=== PATIENT | male | born 1960 | race Caucasian/White ===

== ENCOUNTER 2017-12-18 09:25 | Emergency (ER) | payer MEDICARE, OTHER ==
[~2017-12-18] VITALS: Ht 180.3 cm; Wt 95.0 kg
[2017-12-18] MEDS ORDERED: LIDOcaine 1% 30ml preserv. free vial IJ STA (11:11)
[2017-12-18] MEDS ORDERED: CEPH-572 PO (11:52)
[2017-12-18] MEDS ORDERED: IBUP-1984 PO (11:52)
[2017-12-18 12:13] VITALS: BP 138/84
== END 2017-12-18 12:17 | disposition home or self-care (01) ==
LOC: ER 09:26
DX: S61.011A Laceration without foreign body of right thumb without damage to nail, initial encounter (principal); W25.XXXA Contact with sharp glass, initial encounter; Y93.89 Activity, other specified; Y92.89 Other specified places as the place of occurrence of the external cause; Y99.8 Other external cause status
CPT/HCPCS: 12001; 99283; A6255; A6449; J3490

== ENCOUNTER 2019-02-04 09:23 | Emergency (ER) | payer MEDICARE ==
[~2019-02-04] VITALS: Ht 180.3 cm; Wt 86.4 kg
[2019-02-04 09:29] VITALS: BP 112/72
[2019-02-04 10:01] LABS: BASOPHILS # (AUTO) 0.1 X10'3 (0-0.2); BASOPHILS % (AUTO) 0.9 % (0-1); EOSINOPHILS # (AUTO) 0.1 X10'3 (0-0.9); EOSINOPHILS % (AUTO) 1.5 % (0-6); HEMATOCRIT 45.9 % (42.0-52.0); HEMOGLOBIN 15.4 g/dl (14.0-17.9); LYMPHOCYTES # (AUTO) 1.2 X10'3 (1.1-4.8); LYMPHOCYTES % (AUTO) 19.6 % (21-51); MEAN CORPUSCULAR HEMOGLOBIN 31.7 PG (27.0-31.0); MEAN CORPUSCULAR HGB CONC 33.5 g/dL (33.0-36.5); MEAN CORPUSCULAR VOLUME 94.7 FL (78-98); MEAN PLATELET VOLUME 7.1 FL (7.4-10.4); MONOCYTES # (AUTO) 0.5 X10'3 (0-0.9); MONOCYTES % (AUTO) 8.4 % (2-12); NEUTROPHILS # (AUTO) 4.1 X10'3 (1.8-7.7); NEUTROPHILS % (AUTO) 69.6 % (42-75); PLATELET COUNT 236 X10'3 (140-440); RED BLOOD COUNT 4.85 X10'6 (4.70-6.10); RED CELL DISTRIBUTION WIDTH 14.8 % (11.5-14.5)
[2019-02-04 10:19] LABS: ALANINE AMINOTRANSFERASE 20 U/L (12-78); ALBUMIN 3.7 G/DL (3.4-5.0); ALBUMIN/GLOBULIN RATIO 1.1 (1.1-1.5); ALKALINE PHOSPHATASE 95 IU/L (46-116); ANION GAP 13 (8-16); ASPARTATE AMINO TRANSFERASE 19 U/L (10-37); BILIRUBIN,TOTAL 0.6 MG/DL (0.1-1.0); BLOOD UREA NITROGEN 17 MG/DL (7-18); CALCIUM 9.4 MG/DL (8.5-10.1); CHLORIDE 104 MMOL/L (99-107); CREATININE 1.31 MG/DL (0.60-1.10); GLUCOSE 105 MG/DL (70-104); POTASSIUM 4.3 MMOL/L (3.5-5.1); SODIUM 141 MMOL/L (135-145); TOTAL CARBON DIOXIDE 23.8 MMOL/L (24-32); TOTAL PROTEIN 7.1 G/DL (6.4-8.2); eGFR 56 ML/MIN
[2019-02-04 10:24] LABS: ETHANOL < 0.010 GM/DL (0.0-0.010)
[2019-02-04 10:54] LABS: CLARITY,URINE CLEAR (Clear); COLOR,URINE YELLOW (Yellow); GLUCOSE, URINE NEGATIVE (Neg); KETONES,URINE TRACE mg/dl (Neg); LEUKOCYTE ESTERASE ,URINE NEGATIVE (Neg); OCCULT BLOOD,URINE NEGATIVE (Neg); PH,URINE 5.5 (4.8-8.0); PROTEIN,URINE TRACE mg/dl (Neg)
[2019-02-04 11:02] LABS: NITRITES, URINE NEGATIVE (Neg); UA COLLECTION TYPE CLN CATCH MIDSTREAM
[2019-02-04 11:03] LABS: BACTERIA,URINE FEW /HPF (Neg); MUCUS STRANDS FEW /LPF (Neg); RBC,URINE 0-2 /HPF (0-2); SQUAMOUS EPITHELIAL CELL,UR FEW /LPF (FEW); WBC,URINE 0-4 /HPF (0-4)
[2019-02-04 11:05] LABS: URINE AMPHETAMINE SCREEN POSITIVE (Neg); URINE BARBITUATE SCREEN NEGATIVE (Neg); URINE BENZODIAZEPINES SCREEN NEGATIVE (Neg); URINE CANNABINOID SCREEN NEGATIVE (Neg); URINE COCAINE SCREEN NEGATIVE (Neg); URINE METHADONE SCREEN NEGATIVE (Neg); URINE OPIATE SCREEN NEGATIVE (Neg); URINE PHENCYCLIDINE SCREEN NEGATIVE (Neg)
--- NOTE | 2019-02-04 11:30 | NUR ---
Charge nurse called [place] [facility] to request the PA consult patient.
--- NOTE | 2019-02-04 13:24 | NUR ---
Pt. eating lunch. Pt. was wanting to leave earlier. RN discussed plan of care with pt. and his mother and reminded them pt. is on a hold and cannot leave.
== END 2019-02-04 14:36 | disposition home or self-care (01) ==
LOC: ER 09:24
DX: F29 Unspecified psychosis not due to a substance or known physiological condition (principal); F15.90 Other stimulant use, unspecified, uncomplicated; R45.851 Suicidal ideations; F17.200 Nicotine dependence, unspecified, uncomplicated
CPT/HCPCS: 36415; 80053; 80305; 80320; 81001; 84443; 85025; 99284

== ENCOUNTER 2021-01-21 11:19 | Emergency (ER) | payer MEDICARE, OTHER ==
[~2021-01-21] VITALS: Ht 180.3 cm; Wt 90.0 kg
[2021-01-21] MEDS ORDERED: metoprolol tartrate 50mg tablet PO ONE (11:25)
[2021-01-21] MEDS ORDERED: amLODIPine 5mg tablet PO ONE (11:25)
[2021-01-21 11:39] LABS: BASOPHILS # (AUTO) 0.1 X10'3 (0-0.2); BASOPHILS % (AUTO) 1.8 % (0-1); EOSINOPHILS # (AUTO) 0.1 X10'3 (0-0.9); EOSINOPHILS % (AUTO) 0.9 % (0-6); HEMATOCRIT 52.9 % (42.0-52.0); HEMOGLOBIN 17.4 g/dl (14.0-17.9); LYMPHOCYTES # (AUTO) 0.7 X10'3 (1.1-4.8); LYMPHOCYTES % (AUTO) 11.8 % (21-51); MEAN CORPUSCULAR HEMOGLOBIN 29.4 PG (27.0-31.0); MEAN CORPUSCULAR HGB CONC 32.9 g/dL (33.0-36.5); MEAN CORPUSCULAR VOLUME 89.4 FL (78-98); MEAN PLATELET VOLUME 8.1 FL (7.4-10.4); MONOCYTES # (AUTO) 0.5 X10'3 (0-0.9); MONOCYTES % (AUTO) 8.7 % (2-12); NEUTROPHILS # (AUTO) 4.3 X10'3 (1.8-7.7); NEUTROPHILS % (AUTO) 76.8 % (42-75); PLATELET COUNT 178 X10'3 (140-440); RED BLOOD COUNT 5.91 X10'6 (4.70-6.10); RED CELL DISTRIBUTION WIDTH 18.1 % (11.5-14.5); WHITE BLOOD COUNT 5.6 X10'3 (4.5-11.0)
[2021-01-21 12:01] VITALS: BP_DIAS 97
[2021-01-21 12:05] LABS: ALANINE AMINOTRANSFERASE 24 U/L (12-78); ALBUMIN 3.9 G/DL (3.4-5.0); ALKALINE PHOSPHATASE 148 IU/L (46-116); ANION GAP 22 (8-16); ASPARTATE AMINO TRANSFERASE 27 U/L (10-37); BILIRUBIN,TOTAL 0.5 MG/DL (0.1-1.0); BLOOD UREA NITROGEN 19 MG/DL (7-18); BUN/CREATININE RATIO 13.8 (5.4-32.0); CALCIUM 9.1 MG/DL (8.5-10.1); CHLORIDE 97 MMOL/L (99-107); CREATININE 1.38 MG/DL (0.60-1.10); GLUCOSE 115 MG/DL (70-104); POTASSIUM 4.5 MMOL/L (3.5-5.1); SODIUM 145 MMOL/L (135-145); TOTAL CARBON DIOXIDE 26.1 MMOL/L (24-32); TOTAL PROTEIN 7.8 G/DL (6.4-8.2); eGFR 52 ML/MIN
[2021-01-21 12:12] VITALS: BP_SYST 178
[2021-01-21] MEDS ORDERED: proCHLORperazine 10 MG/2 ml inj IV ONE (12:15)
[2021-01-21] MEDS ORDERED: normal saline 1000ml 1,000 ML IV ONE (12:15)
[2021-01-21] MEDS ORDERED: acetaminophen 325mg tablet PO ONE (12:15)
[2021-01-21] MEDS ORDERED: ketorolac trometh. 30mg/ml inj. IV ONE (12:15)
[2021-01-21] MEDS ORDERED: SUMAtriptan succ. 6 MG/0.5ml vial SQ ONE (12:15)
[2021-01-21] MEDS ORDERED: metoprolol tartrate 25mg tablet PO ONE (12:20)
[2021-01-21 12:42] LABS: MAGNESIUM 2.2 MG/DL (1.5-2.4)
== END 2021-01-21 13:03 | disposition home or self-care (01) ==
LOC: ER 11:19
DX: R51.9 Headache, unspecified (principal); I10 Essential (primary) hypertension; M54.2 Cervicalgia
CPT/HCPCS: 36415; 71045; 80053; 83735; 83880; 84484; 85025; 93005; 96361; 96372; 96374; 96375; 99285; J0780; J1885; J7030; J3030

== ENCOUNTER 2021-03-13 06:11 | Emergency (ER) | payer MEDICARE ==
[~2021-03-13] VITALS: Ht 180.3 cm; Wt 88.6 kg
[2021-03-13 06:28] VITALS: BP 142/72
== END 2021-03-13 07:08 | disposition home or self-care (01) ==
LOC: ER 06:11
DX: L84 Corns and callosities (principal); I10 Essential (primary) hypertension
CPT/HCPCS: 99281

== ENCOUNTER 2021-11-15 08:02 | Emergency (ER) | payer MEDICARE, MEDICAID ==
[~2021-11-15] VITALS: Ht 182.9 cm; Wt 88.0 kg
[2021-11-15] MEDS ORDERED: normal saline 1000ml 1,000 ML IV ONE (08:25)
[2021-11-15] MEDS ORDERED: iohexol 300mg/ml 100ml inj. ONE (08:26)
[2021-11-15] MEDS ORDERED: fentaNYL/PF 50MCG/1 ML 2ML syringe IV ONE (08:40)
[2021-11-15 08:41] LABS: EOSINOPHILS # (AUTO) 0.1 X10'3 (0-0.9); HEMOGLOBIN 16.8 g/dl (14.0-17.9); LYMPHOCYTES # (AUTO) 1.4 X10'3 (1.1-4.8); MEAN CORPUSCULAR HEMOGLOBIN 32.4 PG (27.0-31.0); MONOCYTES # (AUTO) 0.6 X10'3 (0-0.9); NEUTROPHILS # (AUTO) 4.6 X10'3 (1.8-7.7); RED CELL DISTRIBUTION WIDTH 15.6 % (11.5-14.5); WHITE BLOOD COUNT 6.8 X10'3 (4.5-11.0)
[2021-11-15 08:43] LABS: BASOPHILS % (AUTO) 0.4 % (0-1); HEMATOCRIT 49.1 % (42.0-52.0); LYMPHOCYTES % (AUTO) 20.8 % (21-51); MEAN CORPUSCULAR HGB CONC 34.3 g/dL (33.0-36.5); MEAN CORPUSCULAR VOLUME 94.5 FL (78-98); MEAN PLATELET VOLUME 8.3 FL (7.4-10.4); MONOCYTES % (AUTO) 8.6 % (2-12); NEUTROPHILS % (AUTO) 68.2 % (42-75); PLATELET COUNT 217 X10'3 (140-440)
[2021-11-15] MEDS ORDERED: iohexol 350MG/ML 100ml bottle IV ONE (08:53)
[2021-11-15 09:18] LABS: ALANINE AMINOTRANSFERASE 18 U/L (12-78); ALBUMIN 3.3 G/DL (3.4-5.0); ALBUMIN/GLOBULIN RATIO 0.9 (1.1-1.5); ALKALINE PHOSPHATASE 85 IU/L (46-116); ANION GAP 10 (8-16); ASPARTATE AMINO TRANSFERASE 16 U/L (10-37); BILIRUBIN,TOTAL 0.4 MG/DL (0.1-1.0); BLOOD UREA NITROGEN 17 MG/DL (7-18); CALCIUM 8.4 MG/DL (8.5-10.1); CHLORIDE 110 MMOL/L (99-107); CREATININE 1.55 MG/DL (0.60-1.10); GLUCOSE 217 MG/DL (70-104); POTASSIUM 3.9 MMOL/L (3.5-5.1); SODIUM 144 MMOL/L (135-145); TOTAL CARBON DIOXIDE 23.7 MMOL/L (24-32); TOTAL PROTEIN 6.9 G/DL (6.4-8.2); eGFR 46 ML/MIN
[2021-11-15 09:25] LABS: ETHANOL < 0.010 GM/DL (0.0-0.010)
[2021-11-15] MEDS ORDERED: normal saline 1000ML IV soln IV ONE (09:30)
[2021-11-15] MEDS ORDERED: morphine 4 MG/ML inj SYRINge IV ONE ×2 (09:40→10:55)
--- NOTE | 2021-11-15 09:45 | NUR ---
Dr. SILVA AT BEDSIDE PLACING CENTRAL LINE
[2021-11-15] MEDS ORDERED: NORepinephrine 8mg/ 250ml NS 250 ML IV ONE (11:01)
[2021-11-15 11:04] VITALS: BP 68/45
[2021-11-15] MEDS ORDERED: ondansetron/PF 4mg/2ml inj IV ONE (11:15)
== END 2021-11-15 13:24 | disposition short-term general hospital (02) ==
LOC: ER 08:02
DX: I71.3 Abdominal aortic aneurysm, ruptured (principal); Z20.822 Contact with and (suspected) exposure to COVID-19; R55 Syncope and collapse; R41.0 Disorientation, unspecified; K57.30 Diverticulosis of large intestine without perforation or abscess without bleeding; I10 Essential (primary) hypertension; H91.90 Unspecified hearing loss, unspecified ear
CPT/HCPCS: 36415; 36430; 36556; 70450; 71045; 71275; 72125; 74175; 80053; 80320; 82948; 83605; 84484; 85025; 86885; 86900; 86901; 86920; 87635; 93005; 96361; 96365; 96375; 96376; 99291; 99292; C9803; J2270; J2405; J3010; J3490; J7030; P9016; P9035; P9059; Q9967; 99285

== ENCOUNTER 2022-01-26 13:35 | Emergency (ER) | payer MEDICARE, MEDICAID ==
[~2022-01-26] VITALS: Ht 180.3 cm; Wt 84.1 kg
[~2022-01-26 13:35] MED LIST: AMLO5TAB PO; ASPI81TA52 PO; CHLO25TA10 PO; CLOP75TA34 PO; LOSA25TA96 PO; NICO-631 TOP; PANT40TA54 PO; RISP0.253 PO; RISP0.5T65 PO; THIA100T70 PO
[2022-01-26 14:03] LABS: BASOPHILS % (AUTO) 0.3 % (0-1); EOSINOPHILS % (AUTO) 0.8 % (0-6); HEMATOCRIT 47.3 % (42.0-52.0); HEMOGLOBIN 16.1 g/dl (14.0-17.9); LYMPHOCYTES # (AUTO) 0.9 X10'3 (1.1-4.8); LYMPHOCYTES % (AUTO) 13.6 % (21-51); MEAN CORPUSCULAR HEMOGLOBIN 31.5 PG (27.0-31.0); MEAN CORPUSCULAR VOLUME 92.7 FL (78-98); MONOCYTES # (AUTO) 0.5 X10'3 (0-0.9); NEUTROPHILS % (AUTO) 77.3 % (42-75); PLATELET COUNT 243 X10'3 (140-440); RED BLOOD COUNT 5.11 X10'6 (4.70-6.10); RED CELL DISTRIBUTION WIDTH 17.5 % (11.5-14.5); WHITE BLOOD COUNT 6.5 X10'3 (4.5-11.0)
[2022-01-26 14:17] LABS: ALANINE AMINOTRANSFERASE 16 U/L (12-78); ALBUMIN 4.2 G/DL (3.4-5.0); ALKALINE PHOSPHATASE 110 IU/L (46-116); ANION GAP 10 (8-16); ASPARTATE AMINO TRANSFERASE 15 U/L (10-37); BILIRUBIN,TOTAL 0.6 MG/DL (0.1-1.0); BLOOD UREA NITROGEN 19 MG/DL (7-18); BUN/CREATININE RATIO 11.7 (5.4-32.0); CALCIUM 9.3 MG/DL (8.5-10.1); CHLORIDE 99 MMOL/L (99-107); CREATININE 1.63 MG/DL (0.60-1.10); GLUCOSE 146 MG/DL (70-104); LIPASE 86 U/L (73-393); POTASSIUM 3.5 MMOL/L (3.5-5.1); SODIUM 138 MMOL/L (135-145); TOTAL PROTEIN 8.4 G/DL (6.4-8.2); eGFR 43 ML/MIN
--- NOTE | 2022-01-26 15:33 | NUR ---
PATIENT IS DEAF AND MOTHER IS PRESENT AT THE BEDSIDE. PATIENT HAS HAD STENT IN RIGHT FLANK (KIDNEY) SINCE THE END OF October,. THE STENT IS TO BE REMOVED, BUT HE DOES NOT HAVE A DOCTOR TO DO THIS PROCEDURE. PAIN PRESENT FOR ONE WEEK. PAIN INCREASES WHEN HE MOVES AROUND.
[2022-01-26 17:06] LABS: CLARITY,URINE SLIGHTLY CLOUDY (Clear); COLOR,URINE YELLOW (Yellow); GLUCOSE, URINE NEGATIVE (Neg); KETONES,URINE NEGATIVE (Neg); LEUKOCYTE ESTERASE ,URINE SMALL (Neg); NITRITES, URINE NEGATIVE (Neg); OCCULT BLOOD,URINE LARGE (Neg); PROTEIN,URINE 100 mg/dl (Neg); UROBILINOGEN,URINE 0.2 E.U/dL (0.2-1.0)
[2022-01-26 17:08] LABS: UA COLLECTION TYPE URINAL
[2022-01-26 17:10] LABS: WBC,URINE TNTC /HPF (0-4)
[2022-01-26 17:11] LABS: BACTERIA,URINE 2+ /HPF (Neg); RBC,URINE 50-100 /HPF (0-2)
[2022-01-26 17:12] LABS: CELLULAR CAST 0-4 /LPF (NEGATIVE); FINE GRANULAR CAST 0-3 /LPF (NEGATIVE); MUCUS STRANDS NONE SEEN /LPF (Neg); SQUAMOUS EPITHELIAL CELL,UR FEW /LPF (FEW)
[2022-01-26] MEDS ORDERED: CefTRIAXone 2gm/NS 100ml IVPB 100 ML IV ONE (17:55)
[2022-01-26] MEDS ORDERED: iohexol 350MG/ML 100ml bottle IV ONE (18:24)
[2022-01-26] MEDS ORDERED: LEVO750T46 PO (21:11)
[2022-01-26 22:18] VITALS: BP 149/72
== END 2022-01-26 22:20 | disposition home or self-care (01) ==
LOC: ER 13:35
DX: N39.0 Urinary tract infection, site not specified (principal); N23 Unspecified renal colic; I10 Essential (primary) hypertension; R10.84 Generalized abdominal pain; Z79.82 Long term (current) use of aspirin; Z79.2 Long term (current) use of antibiotics; Z79.899 Other long term (current) drug therapy
CPT/HCPCS: 36415; 74174; 74176; 80053; 81001; 83690; 85025; 87088; 87186; 96365; 99285; J0696; Q9967; 87077

== ENCOUNTER 2023-11-29 09:43 | Emergency (ER) | payer MEDICAID, MEDICARE, SELFPAY ==
[~2023-11-29] VITALS: Ht 177.8 cm; Wt 88.6 kg
[~2023-11-29 09:43] MED LIST changes: +LOSA-415 PO; -LOSA25TA96 PO; -RISP0.5T65 PO; +RISP0.5T80 PO
[2023-11-29 09:51] VITALS: PULSE 91; RESP 18; TEMP 97.2
[2023-11-29 10:42] LABS: BASOPHILS % (AUTO) 0.3 % (0-1); EOSINOPHILS # (AUTO) 0.1 X10'3 (0-0.9); EOSINOPHILS % (AUTO) 0.8 % (0-6); HEMATOCRIT 48.5 % (42.0-52.0); HEMOGLOBIN 16.5 g/dl (14.0-17.9); LYMPHOCYTES # (AUTO) 0.9 X10'3 (1.1-4.8); LYMPHOCYTES % (AUTO) 13.2 % (21-51); MEAN CORPUSCULAR HEMOGLOBIN 32.2 PG (27.0-31.0); MEAN CORPUSCULAR VOLUME 94.8 FL (78-98); MEAN PLATELET VOLUME 7.4 FL (7.4-10.4); MONOCYTES # (AUTO) 0.5 X10'3 (0-0.9); MONOCYTES % (AUTO) 8.1 % (2-12); NEUTROPHILS # (AUTO) 5.1 X10'3 (1.8-7.7); NEUTROPHILS % (AUTO) 77.6 % (42-75); PLATELET COUNT 200 X10'3 (140-440); RED BLOOD COUNT 5.12 X10'6 (4.70-6.10); RED CELL DISTRIBUTION WIDTH 12.8 % (11.5-14.5); WHITE BLOOD COUNT 6.6 X10'3 (4.5-11.0)
[2023-11-29 11:01] LABS: ALBUMIN 3.8 G/DL (3.4-5.0); ANION GAP 8 (8-16); BLOOD UREA NITROGEN 15 MG/DL (7-18); CALCIUM 8.3 MG/DL (8.5-10.1); CHLORIDE 104 MMOL/L (99-107); CREATININE 1.36 MG/DL (0.60-1.10); ETHANOL < 10 MG/DL (<10); GLUCOSE 96 MG/DL (70-104); POTASSIUM 4.4 MMOL/L (3.5-5.1); SALICYLATE 4.6 MG/DL (4.0-20.0); SODIUM 140 MMOL/L (135-145); THYROID STIMULATING HORMONE 1.49 ulU/ml (0.34-4.50); TOTAL CARBON DIOXIDE 28.4 MMOL/L (24-32); eCRCL 57 ML/MIN; eGFR 53 ML/MIN
[2023-11-29 11:12] LABS: ACETAMINOPHEN < 2.0 UG/ML (10-30)
[2023-11-29 11:35] LABS: BILIRUBIN,URINE NEGATIVE (Neg); CLARITY,URINE CLEAR (Clear); COLOR,URINE YELLOW (Yellow); GLUCOSE, URINE NEGATIVE (Neg); KETONES,URINE TRACE mg/dl (Neg); LEUKOCYTE ESTERASE ,URINE SMALL (Neg); NITRITES, URINE NEGATIVE (Neg); OCCULT BLOOD,URINE TRACE-INTACT (Neg); PROTEIN,URINE NEGATIVE (Neg); UROBILINOGEN,URINE 0.2 E.U/dL (0.2-1.0)
[2023-11-29 11:48] LABS: UA COLLECTION TYPE NON-SPECIFIED
[2023-11-29 11:52] LABS: URINE AMPHETAMINE SCREEN NEGATIVE (Neg); URINE BARBITUATE SCREEN NEGATIVE (Neg); URINE BENZODIAZEPINES SCREEN NEGATIVE (Neg); URINE CANNABINOID SCREEN POSITIVE (Neg); URINE COCAINE SCREEN NEGATIVE (Neg); URINE METHADONE SCREEN NEGATIVE (Neg); URINE OPIATE SCREEN NEGATIVE (Neg); URINE PHENCYCLIDINE SCREEN NEGATIVE (Neg)
[2023-11-29 12:01] LABS: SQUAMOUS EPITHELIAL CELL,UR FEW /LPF (FEW); TRANSITIONAL EPI CELLS,URINE FEW /HPF
[2023-11-29 12:02] LABS: RBC,URINE 0-2 /HPF (0-2)
[2023-11-29 12:03] LABS: BACTERIA,URINE FEW /HPF (Neg)
[2023-11-29 12:05] LABS: MUCUS STRANDS FEW /LPF (Neg)
[2023-11-29 12:06] LABS: WBC CLUMPS,URINE FEW /HPF (NEGATIVE)
[2023-11-29 12:14] VITALS: BP 119/61; O2SAT 96
[2023-11-29] MEDS: LORazepam 1 MG tablet PO ONE (12:34)
[2023-11-29] MEDS ORDERED: RISP-31 PO (12:49)
[2023-11-29] MEDS ORDERED: NIFE90TA61 PO (12:49)
[2023-11-29] MEDS ORDERED: ZOLP10TA PO (12:49)
[2023-11-29] MEDS ORDERED: DIVA500T9 PO (12:49)
[2023-11-29] MEDS ORDERED: LISI10TA27 PO (12:49)
[2023-11-29] MEDS ORDERED: QUET100T34 PO (12:49)
[2023-11-29] MEDS ORDERED: ROSU5TAB12 PO (12:49)
[2023-11-29] MEDS ORDERED: TRAZ-251 PO (14:56)
== END 2023-11-29 15:29 | disposition home or self-care (01) ==
LOC: ER 09:43
DX: G47.00 Insomnia, unspecified (principal); Z20.822 Contact with and (suspected) exposure to COVID-19
CPT/HCPCS: 36415; 80048; 80305; 80320; 80329; 81001; 84443; 85025; 87088; 87811; 99284

== ENCOUNTER 2024-03-01 20:07 | Emergency (ER) | payer MEDICARE ==
[~2024-03-01] VITALS: Ht 180.3 cm; Wt 115.9 kg
[~2024-03-01 20:07] MED LIST changes: -ASPI81TA52 PO; -CHLO25TA10 PO; -CLOP75TA34 PO; +DIVA500T9 PO; +LISI10TA27 PO; -LOSA-415 PO; -NICO-631 TOP; +NIFE90TA61 PO; -PANT40TA54 PO; +QUET100T34 PO; +RISP-31 PO; -RISP0.253 PO; -RISP0.5T80 PO; +ROSU5TAB12 PO; -THIA100T70 PO; +TRAZ-251 PO; +ZOLP10TA PO
[2024-03-01 20:26] VITALS: BP 116/77; PULSE 84; RESP 14; TEMP 98.3; O2SAT 97
== END 2024-03-01 20:56 ==
LOC: ER 20:07
DX: Z04.1 Encounter for examination and observation following transport accident (principal); I10 Essential (primary) hypertension; Z79.899 Other long term (current) drug therapy; Z87.891 Personal history of nicotine dependence; V49.88XA Car occupant (driver) (passenger) injured in other specified transport accidents, initial encounter; Y93.89 Activity, other specified; Y92.89 Other specified places as the place of occurrence of the external cause; Y99.8 Other external cause status
CPT/HCPCS: 99283